=== PATIENT | male | born 1940 | race Caucasian/White ===

== ENCOUNTER 2019-05-29 07:17 | Inpatient (IN) ==
[~2019-05-29 07:17] MED LIST: DEXTROSE 50% 25 GM/50 ML VIAL IV PRN; GLUCAGON 1 MG VIAL IM PRN; ZALEPLON 5 MG CAPSULE PO PRN
[2019-05-29 08:34] LABS: Basophils # 0.1 10*3/uL (0.0-0.2); Basophils % 0.9 % (0.0-0.8); Eosinophils # 0.3 10*3/uL (0.0-0.87); Eosinophils % 3.2 % (0.00-10.9); Hematocrit 40.8 VOL% (42.0-52.0); Hemoglobin 13.9 GM/DL (14.0-18.0); Immature Granulocytes % 0.6 %; Immature Granulocytes Absolute 0.05 #; Lymphocytes % 25.9 % (21.2-54.2); Mean Corpuscular HGB Conc 34.1 GM/DL (32-36); Mean Corpuscular Volume 87.9 FL (87-102); Monocytes % 11.2 % (1.7-12.7); Neutrophils % 58.2 % (38.7-73.9); Platelet Count 231 T/CUMM (130-400); Red Blood Count 4.64 MC/CUMM (3.8-5.5); Red Cell Distribution Width 12.6 % (9.3-17.3); White Blood Count 7.8 T/CUMM (4-12)
[2019-05-29] MEDS: CHLORHEXIDINE 0.12% ORAL RINSE 60 ML BOTTLE SWISH/SPIT SCH ×2 (09:00→21:00)
[2019-05-29 09:01] LABS: Bilirubin,Total 0.6 MG/DL (0.2-1.0); Calcium 9.5 MG/DL (8.5-10.1); Osmolality,Calculated 285.3 MOS/KG (273-304); Total Protein 7.6 G/DL (6.4-8.3)
[2019-05-29] MEDS: ASPIRIN CHEW 81 MG TABLET PO SCH (09:43)
[2019-05-29] MEDS: LISINOPRIL 10 MG TABLET PO SCH (09:43)
[2019-05-29] MEDS: ATORVASTATIN 10 MG TABLET PO SCH (09:43)
[2019-05-29] MEDS: CHLORHEXIDINE 4% SOLN 118 ML BOTTLE TOP SCH ×4 (15:19→21:00)
[2019-05-30] MEDS ORDERED: VANCOMYCIN 1,000 MG VIAL ONE (04:23)
[2019-05-30] MEDS ORDERED: VANCOMYCIN 500 MG VIAL ONE (04:23)
[2019-05-30] MEDS ORDERED: PAPAVERINE 60 MG/2 ML VIAL ONE (04:23)
[2019-05-30] MEDS ORDERED: HEPARIN/NACL 0.9% 2 UNITS/ML 500 ML IV ONE (05:27)
[2019-05-30] MEDS ORDERED: SUFentanil 250 MCG/5 ML AMP ONE (05:28)
[2019-05-30] MEDS ORDERED: MIDAZOLAM 10 MG/2 ML VIAL ONE (05:28)
[2019-05-30] MEDS: SODIUM CHLORIDE 0.9% 1,000 ML IV SCH ×2 (05:46→10:20)
[2019-05-30] MEDS ORDERED: PANTOPRAZOLE 40 MG VIAL IV ONE (06:00)
[2019-05-30] MEDS ORDERED: DIAZEPAM 5 MG TABLET PO ONE (06:00)
[2019-05-30] MEDS ORDERED: CEFUROXIME INJ 1,500 MG in SYRINGE 1 EACH IV ONE (06:00)
[2019-05-30 07:44] LABS: ABG Base Excess 0.2 MMOL/L (-2.5-2.5); ABG HCO3 24.6 MMOL/L (20-26); ABG PH 7.467 (7.35-7.45); ABG TCO2 20.3 MMOL/L (23-27); Glucose Heart Surgery 150 MG/DL (74-106); Hematocrit Heart Surgery 37.3 PERCENT (42-52); Hemoglobin Heart Surgery 12.1 G/DL (14.0-18.0); Ionized Calcium Arterial 1.14 MMOL/L (1.21-1.46); PH Patient Temp Arterial 7.467; Patient Temperature 37 CELCIUS; Potassium Heart/CVR 3.9 MMOL/L (3.5-5.1); Sodium Heart/CVR 139 MMOL/L (135-145)
[2019-05-30 07:57] LABS: Apearance,Urine CLEAR (Clear); Bilirubin,Urine Negative (Negative); Blood, Urine Moderate mg/dL (Negative); Glucose,Urine (UA) 150 mg/dL (Negative); Ketones,Urine Negative (Negative); Mucus,Urine Occasional /LPF (Occasional); Nitrite,Urine Negative (Negative); Protein,Urine Negative; RBC,Urine 42 /HPF (0-4); Urine Color Yellow (Yellow); Urine Specific Gravity 1.017 (1.001-1.035); Urine Urobilinogen < 2.0 EU/DL (0.2-1.0); WBC,Urine <1 /HPF (0-6)
[2019-05-30 08:53] LABS: Hematocrit Heart Surgery 26.9 PERCENT (42-52); Hemoglobin Heart Surgery 8.7 G/DL (14.0-18.0); PCO2 Patient Temp Venous 31.2 MM HG; PH Patient Temp Venous 7.481; PO2 Patient Temp Venous 39.7 MM HG; Potassium Heart/CVR 4.8 MMOL/L (3.5-5.1); VBG Base Excess 0.3 MEQ/L (0-4); VBG HCO3 24.5 MEQ/L (24-28); VBG Oxygen Saturation 85.2 %; VBG PCO2 34.3 MMHG (41-51); VBG PH 7.451; VBG PO2 45.5 MMHG (17-40)
[2019-05-30] MEDS ORDERED: SODIUM BICARBONATE 50 MEQ/50 ML VIAL IV ONE ×2 (08:57→10:25)
[2019-05-30] MEDS ORDERED: NITROPRUSSIDE 50 MG/2 ML VIAL ONE (08:57)
[2019-05-30] MEDS ORDERED: CALCIUM CHLORIDE 1,000 MG/10 ML SYRINGE IV ONE (08:57)
[2019-05-30] MEDS ORDERED: PHENYLEPHRINE DRIP 40 MG/250 ML PREMIX IV ONE (08:57)
[2019-05-30] MEDS ORDERED: POTASSIUM CHLORIDE RIDER 100 ML IV ONE (08:58)
[2019-05-30] MEDS ORDERED: ALBUMIN 5% 12.5 GM/250 ML VIAL IV ONE ×2 (09:19)
[2019-05-30 09:29] LABS: Hematocrit Heart Surgery 29.2 PERCENT (42-52); Hemoglobin Heart Surgery 9.4 G/DL (14.0-18.0); PCO2 Patient Temp Venous 32.1 MM HG; PH Patient Temp Venous 7.466; PO2 Patient Temp Venous 40.6 MM HG; Potassium Heart/CVR 5.2 MMOL/L (3.5-5.1); VBG HCO3 24.2 MEQ/L (24-28); VBG Oxygen Saturation 87.3 %; VBG PCO2 37.2 MMHG (41-51); VBG PH 7.421; VBG PO2 49.9 MMHG (17-40)
[2019-05-30] MEDS: ASPIRIN CHEW 81 MG TABLET PO SCH (10:20)
[2019-05-30] MEDS: CHLORHEXIDINE 0.12% ORAL RINSE 60 ML BOTTLE SWISH/SPIT SCH ×2 (10:20→20:31)
[2019-05-30] MEDS: ATORVASTATIN 10 MG TABLET PO SCH (10:20)
[2019-05-30] MEDS: CHLORHEXIDINE 4% SOLN 118 ML BOTTLE TOP SCH (10:20)
[2019-05-30] MEDS: LISINOPRIL 10 MG TABLET PO SCH (10:21)
[2019-05-30] MEDS ORDERED: DEXTROSE 5% KCL 20 MEQ 20 MEQ/1,000 ML BAG IV ONE (10:24)
[2019-05-30] MEDS ORDERED: MANNITOL 100 GM/500 ML BAG IV ONE (10:24)
[2019-05-30] MEDS ORDERED: LIDOCAINE 2% 5 ML VIAL ONE ×2 (10:24→11:45)
[2019-05-30] MEDS ORDERED: HEPARIN 10,000 UNIT/10 ML VIAL ONE (10:25)
[2019-05-30] MEDS ORDERED: FUROSEMIDE 20 MG/2 ML VIAL ONE (10:25)
[2019-05-30] MEDS ORDERED: ALBUMIN 25% 25 GM/100 ML VIAL IV ONE (10:25)
[2019-05-30] MEDS ORDERED: PROTAMINE SULFATE 250 MG/25 ML VIAL IV ONE (10:25)
[2019-05-30] MEDS ORDERED: MAGNESIUM SULFATE 5 GM/10 ML VIAL IV ONE (10:25)
[2019-05-30] MEDS ORDERED: methylPREDNISolone SOD SUC 1,000 MG/8 ML VIAL ONE (10:25)
[2019-05-30 10:36] LABS: ABG Base Excess -2.2 MMOL/L (-2.5-2.5); ABG HCO3 22.6 MMOL/L (20-26); ABG Oxygen Saturation 99.8 % (95-100); ABG PCO2 35.7 MM HG (35-48); ABG TCO2 19.9 MMOL/L (23-27); Glucose Heart Surgery 226 MG/DL (74-106); Hematocrit Heart Surgery 33.8 PERCENT (42-52); Hemoglobin Heart Surgery 10.9 G/DL (14.0-18.0); Ionized Calcium Arterial 1.27 MMOL/L (1.21-1.46); PCO2 Patient Temp Arterial 35.7 MMHG; Patient Temperature 37 CELCIUS; Potassium Heart/CVR 4.3 MMOL/L (3.5-5.1); Sodium Heart/CVR 135 MMOL/L (135-145)
[2019-05-30] MEDS ORDERED: SEVOFLURANE 1 UNIT/15 MINUTE INH ONE (11:44)
[2019-05-30] MEDS ORDERED: VECURONIUM 10 MG VIAL IV ONE (11:45)
[2019-05-30] MEDS ORDERED: ETOMIDATE 40 MG/20 ML VIAL IV ONE (11:45)
[2019-05-30] MEDS ORDERED: CALCIUM CHLORIDE 1,000 MG/10 ML VIAL IV ONE (11:45)
[2019-05-30] MEDS ORDERED: PHENYLEPHRINE DRIP 20 MG/250 ML PREMIX IV ONE (11:45)
[2019-05-30] MEDS ORDERED: GLYCOPYRROLATE 0.4 MG/2 ML VIAL ONE (11:45)
[2019-05-30] MEDS: SODIUM CHLORIDE 0.45% 1,000 ML IV SCH ×2 (11:45→12:33)
[2019-05-30] MEDS ORDERED: SODIUM CHLORIDE 0.9% 1,000 ML IV ONE (11:46)
[2019-05-30] MEDS ORDERED: PHENYLEPHRINE 1 MG/10 ML SYRINGE IV ONE (11:46)
[2019-05-30] MEDS ORDERED: LACTATED RINGERS 1,000 ML IV ONE (11:46)
[2019-05-30] MEDS ORDERED: AMINOCAPROIC ACID 5,000 MG/20 ML VIAL ONE (11:46)
[2019-05-30] MEDS ORDERED: MAGNESIUM SULF RIDER 4 GM in PREMIX 1 EACH IV PRN (11:49)
[2019-05-30] MEDS ORDERED: INSULIN REGULAR 100 UNIT/ML IV PRN (11:49)
[2019-05-30] MEDS ORDERED: NITROPRUSSIDE 100 MG in DEXTROSE 5% 250 ML IV PRN (11:49)
[2019-05-30] MEDS ORDERED: MAGNESIUM SULF RIDER 2 GM in PREMIX 1 EACH IV PRN (11:49)
[2019-05-30] MEDS ORDERED: CALCIUM CHLORIDE 1,000 MG/10 ML SYRINGE IV PRN (11:49)
[2019-05-30] MEDS ORDERED: ONDANSETRON 4 MG/2 ML VIAL IV PRN (11:49)
[2019-05-30] MEDS ORDERED: VECURONIUM 10 MG VIAL IV PRN ×2 (11:49)
[2019-05-30] MEDS ORDERED: ACETAMINOPHEN 650 MG SUPP RECTAL PRN (11:49)
[2019-05-30] MEDS ORDERED: MORPHINE 10 MG/1 ML VIAL IV PRN (11:49)
[2019-05-30] MEDS ORDERED: PHENYLEPHRINE DRIP 40 MG/250 ML PREMIX IV PRN (11:49)
[2019-05-30] MEDS ORDERED: DEXTROSE 10% 250 ML BAG IV PRN ×2 (11:49)
[2019-05-30] MEDS ORDERED: INSULIN REGULAR 100 UNIT/ML IV ONE (11:49)
[2019-05-30] MEDS ORDERED: LACTATED RINGERS 250 ML IV PRN (11:49)
[2019-05-30] MEDS ORDERED: KETOROLAC 30 MG/1 ML VIAL IV SCH (12:00)
[2019-05-30] MEDS ORDERED: INSULIN REGULAR DRIP 100 ML IV SCH (12:00)
[2019-05-30 12:11] LABS: ABG Base Excess -2.1 MMOL/L (-2.5-2.5); ABG HCO3 22.2 MMOL/L (20-26); ABG Oxygen Saturation 98.5 % (95-100); ABG PCO2 36.2 MM HG (35-48); ABG PH 7.405 (7.35-7.45); ABG PO2 162.5 MM HG (80-95); ABG TCO2 23.3 MMOL/L (23-27); Glucose Heart Surgery 186 MG/DL (74-106); Hemoglobin Heart Surgery 11.2 G/DL (14.0-18.0); Potassium Heart/CVR 3.6 MMOL/L (3.5-5.1)
[2019-05-30] MEDS: ALBUMIN 5% 12.5 GM in PREMIX 1 EACH IV PRN ×3 (12:14→16:25)
[2019-05-30 12:16] LABS: Basophils % 0.2 % (0.0-0.8); Eosinophils # 0.1 10*3/uL (0.0-0.87); Eosinophils % 0.5 % (0.00-10.9); Hematocrit 31.3 VOL% (42.0-52.0); Hemoglobin 10.6 GM/DL (14.0-18.0); Immature Granulocytes % 0.5 %; Immature Granulocytes Absolute 0.05 #; Mean Corpuscular HGB Conc 33.9 GM/DL (32-36); Mean Corpuscular Volume 88.4 FL (87-102); Mean Platelet Volume 10.1 FL (9.6-12.0); Monocytes % 6.3 % (1.7-12.7); Neutrophils % 81.5 % (38.7-73.9); Platelet Count 165 T/CUMM (130-400); Red Blood Count 3.54 MC/CUMM (3.8-5.5); Red Cell Distribution Width 12.7 % (9.3-17.3); White Blood Count 9.1 T/CUMM (4-12)
[2019-05-30 12:25] LABS: INR 1.1; PT Patient Result 11.7 SECS (9.6-12.2); Partial Thromboplastin Time 25.2 SECS (20.8-36.0)
[2019-05-30 12:34] LABS: CKMB % 6.9 %
[2019-05-30 12:37] LABS: Troponin I 3.36 NG/ML (0.00-0.045)
[2019-05-30 12:44] LABS: Albumin 3.4 G/DL (3.4-5.0); Calcium 8.1 MG/DL (8.5-10.1); Osmolality,Calculated 288.3 MOS/KG (273-304); Total Protein 5.8 G/DL (6.4-8.3)
[2019-05-30] MEDS: POTASSIUM CHLORIDE RIDER 20 MEQ in PREMIX 1 EACH IV PRN ×4 (12:45→20:37)
[2019-05-30] MEDS: POTASSIUM CHLORIDE RIDER 10 MEQ in PREMIX 1 EACH IV PRN ×3 (13:15→18:59)
[2019-05-30] MEDS: LACTATED RINGERS 1,000 ML IV PRN ×2 (13:45→14:21)
[2019-05-30 14:11] LABS: ABG Base Excess -1.8 MMOL/L (-2.5-2.5); ABG HCO3 22.7 MMOL/L (20-26); ABG Oxygen Saturation 97.6 % (95-100); ABG PCO2 37.7 MM HG (35-48); ABG PH 7.398 (7.35-7.45); ABG PO2 115.3 MM HG (80-95); ABG TCO2 23.9 MMOL/L (23-27); Glucose Heart Surgery 137 MG/DL (74-106); Potassium Heart/CVR 3.8 MMOL/L (3.5-5.1)
[2019-05-30] MEDS: MORPHINE 4 MG/1 ML VIAL IV PRN ×3 (15:58→18:15)
[2019-05-30] MEDS: MIDAZOLAM 2 MG/2 ML VIAL IV PRN ×2 (16:55→18:28)
[2019-05-30 17:51] LABS: ABG Base Excess -4.1 MMOL/L (-2.5-2.5); ABG Oxygen Saturation 95.9 % (95-100); ABG PCO2 44.2 MM HG (35-48); ABG PH 7.308 (7.35-7.45); ABG PO2 83.1 MM HG (80-95); ABG TCO2 20.3 MMOL/L (23-27); Glucose Heart Surgery 164 MG/DL (74-106); Hematocrit Heart Surgery 31.9 PERCENT (42-52); Hemoglobin Heart Surgery 10.3 G/DL (14.0-18.0); Potassium Heart/CVR 3.7 MMOL/L (3.5-5.1)
[2019-05-30] MEDS: MIDAZOLAM 10 MG/2 ML VIAL IV PRN ×2 (19:19→21:27)
[2019-05-30 20:21] LABS: ABG Base Excess -4.3 MMOL/L (-2.5-2.5); ABG HCO3 20.8 MMOL/L (20-26); ABG Oxygen Saturation 98.5 % (95-100); ABG PCO2 39.3 MM HG (35-48); ABG PH 7.338 (7.35-7.45); ABG TCO2 19.3 MMOL/L (23-27); Glucose Heart Surgery 149 MG/DL (74-106); Hematocrit Heart Surgery 30.7 PERCENT (42-52); Hemoglobin Heart Surgery 9.9 G/DL (14.0-18.0); Potassium Heart/CVR 4.4 MMOL/L (3.5-5.1)
[2019-05-30] MEDS: CEFUROXIME INJ 1,500 MG in SYRINGE 1 EACH IV SCH (20:28)
[2019-05-30 20:45] LABS: CKMB % 6.2 %
[2019-05-30 20:46] LABS: Troponin I 3.19 NG/ML (0.00-0.045)
[2019-05-30] MEDS ORDERED: FUROSEMIDE 40 MG/4 ML VIAL IV ONE (23:48)
[2019-05-31 00:15] LABS: ABG Base Excess -1.1 MMOL/L (-2.5-2.5); ABG HCO3 22.8 MMOL/L (20-26); ABG Oxygen Saturation 94.7 % (95-100); ABG PCO2 34.6 MM HG (35-48); ABG PH 7.436 (7.35-7.45); ABG PO2 73.2 MM HG (80-95); ABG TCO2 23.8 MMOL/L (23-27); Glucose Heart Surgery 123 MG/DL (74-106); Hemoglobin Heart Surgery 10.1 G/DL (14.0-18.0); Potassium Heart/CVR 4.2 MMOL/L (3.5-5.1)
[2019-05-31] MEDS: POTASSIUM CHLORIDE RIDER 20 MEQ in PREMIX 1 EACH IV PRN ×4 (00:25→04:03)
[2019-05-31] MEDS: MIDAZOLAM 10 MG/2 ML VIAL IV PRN (01:11)
[2019-05-31 03:19] LABS: ABG Base Excess -0.7 MMOL/L (-2.5-2.5); ABG HCO3 23.8 MMOL/L (20-26); ABG Oxygen Saturation 95.8 % (95-100); ABG PCO2 34.7 MM HG (35-48); ABG PH 7.431 (7.35-7.45); ABG PO2 72.7 MM HG (80-95); Glucose Heart Surgery 156 MG/DL (74-106); Hematocrit Heart Surgery 30.7 PERCENT (42-52); Hemoglobin Heart Surgery 9.9 G/DL (14.0-18.0); Potassium Heart/CVR 4.4 MMOL/L (3.5-5.1)
[2019-05-31 03:22] LABS: Basophils % 0.1 % (0.0-0.8); Hematocrit 28.8 VOL% (42.0-52.0); Hemoglobin 9.7 GM/DL (14.0-18.0); Immature Granulocytes % 0.5 %; Immature Granulocytes Absolute 0.07 #; Lymphocytes # 0.7 10*3/uL (1.4-4.0); Lymphocytes % 5.4 % (21.2-54.2); Mean Corpuscular HGB Conc 33.7 GM/DL (32-36); Mean Corpuscular Volume 88.3 FL (87-102); Mean Platelet Volume 10.8 FL (9.6-12.0); Monocytes % 7.6 % (1.7-12.7); Neutrophils % 86.4 % (38.7-73.9); Platelet Count 154 T/CUMM (130-400); Red Blood Count 3.26 MC/CUMM (3.8-5.5); Red Cell Distribution Width 13.1 % (9.3-17.3); White Blood Count 13.2 T/CUMM (4-12)
[2019-05-31 03:41] LABS: Albumin 3.8 G/DL (3.4-5.0); Bilirubin,Direct 0.15 MG/DL (0.0-0.20); Bilirubin,Total 0.7 MG/DL (0.2-1.0); CKMB % 5.6 %; Calcium 8.6 MG/DL (8.5-10.1); Osmolality,Calculated 288.1 MOS/KG (273-304)
[2019-05-31 03:46] LABS: Troponin I 3.88 NG/ML (0.00-0.045)
[2019-05-31 04:45] LABS: ABG Base Excess -0.4 MMOL/L (-2.5-2.5); ABG HCO3 22.7 MMOL/L (20-26); ABG Oxygen Saturation 97.4 % (95-100); ABG PCO2 31.9 MM HG (35-48); ABG PO2 100.8 MM HG (80-95); ABG TCO2 23.7 MMOL/L (23-27); Glucose Heart Surgery 157 MG/DL (74-106); Hemoglobin Heart Surgery 10.4 G/DL (14.0-18.0); Potassium Heart/CVR 5.1 MMOL/L (3.5-5.1)
[2019-05-31 06:01] LABS: ABG Base Excess -0.8 MMOL/L (-2.5-2.5); ABG HCO3 23.7 MMOL/L (20-26); ABG Oxygen Saturation 98.4 % (95-100); ABG PCO2 32.5 MM HG (35-48); ABG PO2 97.4 MM HG (80-95); ABG TCO2 20.5 MMOL/L (23-27); Glucose Heart Surgery 156 MG/DL (74-106); Hematocrit Heart Surgery 30.9 PERCENT (42-52); Potassium Heart/CVR 4.6 MMOL/L (3.5-5.1)
[2019-05-31] MEDS: MORPHINE 4 MG/1 ML VIAL IV PRN (07:32)
[2019-05-31 07:48] LABS: ABG Base Excess -0.8 MMOL/L (-2.5-2.5); ABG HCO3 23.7 MMOL/L (20-26); ABG Oxygen Saturation 97.2 % (95-100); ABG PCO2 35.3 MM HG (35-48); ABG PH 7.425 (7.35-7.45); Glucose Heart Surgery 172 MG/DL (74-106); Hematocrit Heart Surgery 30.7 PERCENT (42-52); Hemoglobin Heart Surgery 9.9 G/DL (14.0-18.0); Potassium Heart/CVR 4.4 MMOL/L (3.5-5.1)
[2019-05-31] MEDS: CEFUROXIME INJ 1,500 MG in SYRINGE 1 EACH IV SCH (07:51)
[2019-05-31] MEDS: LISINOPRIL 10 MG TABLET PO SCH (08:42)
[2019-05-31] MEDS: INSULIN REGULAR 100 UNIT/ML SUBCUT SCH ×5 (08:42→21:24)
[2019-05-31] MEDS: metFORMIN 500 MG TABLET PO SCH ×2 (08:42→21:23)
[2019-05-31] MEDS: ASPIRIN EC 81 MG TABLET PO SCH (08:43)
[2019-05-31] MEDS: CHLORHEXIDINE 0.12% ORAL RINSE 60 ML BOTTLE SWISH/SPIT SCH ×3 (08:43→21:25)
[2019-05-31] MEDS: METOPROLOL TARTRATE 25 MG TABLET PO SCH ×2 (08:43→21:23)
[2019-05-31] MEDS: LOPERAMIDE 2 MG CAPSULE PO SCH (08:43)
[2019-05-31] MEDS ORDERED: DEXTROSE 10% 250 ML BAG IV PRN (13:02)
[2019-05-31] MEDS ORDERED: ALUMINUM/MAGNES/SIMETH MAX STR 30 ML UDCUP PO PRN (13:02)
[2019-05-31] MEDS ORDERED: MAGNESIUM SULF RIDER 2 GM in PREMIX 1 EACH IV PRN (13:02)
[2019-05-31] MEDS ORDERED: MORPHINE 4 MG/1 ML VIAL IV PRN (13:02)
[2019-05-31] MEDS ORDERED: DEXTROSE 50% 25 GM/50 ML VIAL IV PRN (13:02)
[2019-05-31] MEDS ORDERED: POTASSIUM CHLORIDE 20 MEQ TABLET PO PRN (13:02)
[2019-05-31] MEDS ORDERED: ZALEPLON 5 MG CAPSULE PO PRN (13:02)
[2019-05-31] MEDS ORDERED: SODIUM CHLOR 0.45% KCL 20 MEQ 20 MEQ/1,000 ML BAG IV SCH (13:02)
[2019-05-31] MEDS ORDERED: ONDANSETRON 4 MG/2 ML VIAL IV PRN (13:02)
[2019-05-31] MEDS ORDERED: GLUCAGON 1 MG VIAL IM PRN ×2 (13:02)
[2019-05-31] MEDS ORDERED: MAGNESIUM HYDROXIDE SUSP 30 ML UDCUP PO PRN (13:02)
[2019-05-31] MEDS ORDERED: ACETAMINOPHEN 325 MG TABLET PO PRN (13:02)
[2019-05-31] MEDS: SODIUM CHLORIDE 0.45% 1,000 ML IV SCH ×2 (13:12)
[2019-05-31] MEDS: FERROUS SULFATE 325 MG TABLET PO SCH (13:35)
[2019-05-31] MEDS: PANTOPRAZOLE 40 MG TABLET PO SCH (13:35)
[2019-05-31] MEDS: DOCUSATE SODIUM 100 MG CAPSULE PO SCH (13:35)
[2019-05-31] MEDS: ATORVASTATIN 10 MG TABLET PO SCH (21:24)
[2019-06-01] MEDS: oxyCODONE/ACETAMINOPHEN 5-325 MG TABLET PO PRN (05:28)
[2019-06-01] MEDS ORDERED: FUROSEMIDE 40 MG/4 ML VIAL IV ONE (06:00)
[2019-06-01 07:13] LABS: Basophils % 0.1 % (0.0-0.8); Hematocrit 32.1 VOL% (42.0-52.0); Hemoglobin 10.3 GM/DL (14.0-18.0); Immature Granulocytes % 0.7 %; Immature Granulocytes Absolute 0.15 #; Lymphocytes # 1.2 10*3/uL (1.4-4.0); Mean Corpuscular HGB Conc 32.1 GM/DL (32-36); Mean Corpuscular Volume 92.2 FL (87-102); Mean Platelet Volume 11.3 FL (9.6-12.0); Monocytes % 11.5 % (1.7-12.7); Neutrophils % 81.7 % (38.7-73.9); Platelet Count 181 T/CUMM (130-400); Red Blood Count 3.48 MC/CUMM (3.8-5.5); Red Cell Distribution Width 13.2 % (9.3-17.3); White Blood Count 20.1 T/CUMM (4-12)
[2019-06-01 07:33] LABS: Hypochromasia 1+; Lymphocytes 4 % (20-55); Ovalocytes Slight; Platelet Estimate Adequate; Segmented Neutrophils 86 % (50-85); Total Cells Counted 100
[2019-06-01 07:49] LABS: Albumin 3.5 G/DL (3.4-5.0); Bilirubin,Direct 0.16 MG/DL (0.0-0.20); Bilirubin,Indirect 0.4 MG/DL (0.0-1.0); Bilirubin,Total 0.6 MG/DL (0.2-1.0); CKMB % 1.5 %; Calcium 8.1 MG/DL (8.5-10.1); Total Protein 6.8 G/DL (6.4-8.3)
[2019-06-01 07:50] LABS: Troponin I 3.14 NG/ML (0.00-0.045)
[2019-06-01] MEDS: metFORMIN 500 MG TABLET PO SCH ×2 (08:54→21:52)
[2019-06-01] MEDS: ASPIRIN EC 81 MG TABLET PO SCH (08:54)
[2019-06-01] MEDS: INSULIN REGULAR 100 UNIT/ML SUBCUT SCH ×4 (08:54→21:50)
[2019-06-01] MEDS: LISINOPRIL 10 MG TABLET PO SCH (08:54)
[2019-06-01] MEDS: FERROUS SULFATE 325 MG TABLET PO SCH (08:55)
[2019-06-01] MEDS: DOCUSATE SODIUM 100 MG CAPSULE PO SCH (08:55)
[2019-06-01] MEDS: LOPERAMIDE 2 MG CAPSULE PO SCH (08:55)
[2019-06-01] MEDS: PANTOPRAZOLE 40 MG TABLET PO SCH (08:55)
[2019-06-01] MEDS: CHLORHEXIDINE 0.12% ORAL RINSE 60 ML BOTTLE SWISH/SPIT SCH ×2 (08:55→21:53)
[2019-06-01] MEDS: METOPROLOL TARTRATE 25 MG TABLET PO SCH ×2 (09:02→21:52)
[2019-06-01] MEDS: ATORVASTATIN 10 MG TABLET PO SCH (21:52)
[2019-06-02] MEDS: oxyCODONE/ACETAMINOPHEN 5-325 MG TABLET PO PRN ×2 (03:55→21:02)
[2019-06-02 06:02] LABS: Basophils % 0.1 % (0.0-0.8); Eosinophils % 0.1 % (0.00-10.9); Hematocrit 29.1 VOL% (42.0-52.0); Hemoglobin 9.4 GM/DL (14.0-18.0); Immature Granulocytes % 0.9 %; Immature Granulocytes Absolute 0.14 #; Lymphocytes # 2.2 10*3/uL (1.4-4.0); Lymphocytes % 14.4 % (21.2-54.2); Mean Corpuscular HGB Conc 32.3 GM/DL (32-36); Mean Corpuscular Volume 92.4 FL (87-102); Mean Platelet Volume 11.1 FL (9.6-12.0); Monocytes % 11.7 % (1.7-12.7); Neutrophils % 72.8 % (38.7-73.9); Platelet Count 157 T/CUMM (130-400); Red Blood Count 3.15 MC/CUMM (3.8-5.5); Red Cell Distribution Width 13.1 % (9.3-17.3); White Blood Count 15.6 T/CUMM (4-12)
[2019-06-02 06:50] LABS: Alanine Aminotransferase 18 U/L (16-61); Albumin 3.1 G/DL (3.4-5.0); Alkaline Phosphatase 60 U/L (45-117); Aspartate Amino Transferase 23 U/L (0-37); Bilirubin,Indirect 0.4 MG/DL (0.0-1.0); Blood Urea Nitrogen 31 MG/DL (7-18); Calcium 8.3 MG/DL (8.5-10.1); Estimated Glom Filtration Rate 71 ML/MIN; Glucose 152 MG/DL (74-106); Osmolality,Calculated 284.7 MOS/KG (273-304)
[2019-06-02] MEDS: INSULIN REGULAR 100 UNIT/ML SUBCUT SCH ×4 (08:46→21:01)
[2019-06-02] MEDS: LISINOPRIL 10 MG TABLET PO SCH (09:33)
[2019-06-02] MEDS: DOCUSATE SODIUM 100 MG CAPSULE PO SCH (09:33)
[2019-06-02] MEDS: CHLORHEXIDINE 0.12% ORAL RINSE 60 ML BOTTLE SWISH/SPIT SCH ×2 (09:34→21:02)
[2019-06-02] MEDS: metFORMIN 500 MG TABLET PO SCH ×2 (09:34→21:01)
[2019-06-02] MEDS: ASPIRIN EC 81 MG TABLET PO SCH (09:34)
[2019-06-02] MEDS: PANTOPRAZOLE 40 MG TABLET PO SCH (09:34)
[2019-06-02] MEDS: FERROUS SULFATE 325 MG TABLET PO SCH (09:34)
[2019-06-02] MEDS: LOPERAMIDE 2 MG CAPSULE PO SCH (09:34)
[2019-06-02] MEDS: METOPROLOL TARTRATE 25 MG TABLET PO SCH ×2 (09:34→21:01)
[2019-06-02] MEDS: ATORVASTATIN 10 MG TABLET PO SCH (21:01)
[2019-06-03] MEDS: FERROUS SULFATE 325 MG TABLET PO SCH (08:59)
[2019-06-03] MEDS: INSULIN REGULAR 100 UNIT/ML SUBCUT SCH ×4 (08:59→22:11)
[2019-06-03] MEDS: DOCUSATE SODIUM 100 MG CAPSULE PO SCH (08:59)
[2019-06-03] MEDS: ASPIRIN EC 81 MG TABLET PO SCH (08:59)
[2019-06-03] MEDS: LOPERAMIDE 2 MG CAPSULE PO SCH (09:00)
[2019-06-03] MEDS: CHLORHEXIDINE 0.12% ORAL RINSE 60 ML BOTTLE SWISH/SPIT SCH ×2 (09:00→22:18)
[2019-06-03] MEDS: LISINOPRIL 10 MG TABLET PO SCH (09:00)
[2019-06-03] MEDS: metFORMIN 500 MG TABLET PO SCH ×2 (09:00→22:10)
[2019-06-03] MEDS: PANTOPRAZOLE 40 MG TABLET PO SCH (09:00)
[2019-06-03] MEDS: METOPROLOL TARTRATE 25 MG TABLET PO SCH ×2 (09:00→22:11)
[2019-06-03] MEDS: oxyCODONE/ACETAMINOPHEN 5-325 MG TABLET PO PRN (19:55)
[2019-06-03] MEDS: ATORVASTATIN 10 MG TABLET PO SCH (22:11)
[2019-06-04 05:01] LABS: Basophils % 0.3 % (0.0-0.8); Eosinophils # 0.3 10*3/uL (0.0-0.87); Eosinophils % 2.6 % (0.00-10.9); Hematocrit 29.7 VOL% (42.0-52.0); Hemoglobin 9.9 GM/DL (14.0-18.0); Immature Granulocytes % 1.2 %; Immature Granulocytes Absolute 0.13 #; Lymphocytes # 2.6 10*3/uL (1.4-4.0); Lymphocytes % 23.3 % (21.2-54.2); Mean Corpuscular HGB Conc 33.3 GM/DL (32-36); Mean Corpuscular Volume 88.7 FL (87-102); Mean Platelet Volume 10.7 FL (9.6-12.0); Monocytes % 11.4 % (1.7-12.7); Neutrophils % 61.2 % (38.7-73.9); Platelet Count 219 T/CUMM (130-400); Red Blood Count 3.35 MC/CUMM (3.8-5.5); Red Cell Distribution Width 12.3 % (9.3-17.3); White Blood Count 11.2 T/CUMM (4-12)
[2019-06-04 05:31] LABS: Alanine Aminotransferase 28 U/L (16-61); Albumin 2.9 G/DL (3.4-5.0); Alkaline Phosphatase 89 U/L (45-117); Aspartate Amino Transferase 19 U/L (0-37); Bilirubin,Indirect 0.5 MG/DL (0.0-1.0); Blood Urea Nitrogen 24 MG/DL (7-18); Estimated Glom Filtration Rate 71 ML/MIN; Glucose 133 MG/DL (74-106); Osmolality,Calculated 286.3 MOS/KG (273-304); Total Protein 6.2 G/DL (6.4-8.3)
[2019-06-04] MEDS: MAGNESIUM SULF RIDER 4 GM in PREMIX 1 EACH IV PRN (06:39)
[2019-06-04] MEDS: ASPIRIN EC 81 MG TABLET PO SCH (08:51)
[2019-06-04] MEDS: METOPROLOL TARTRATE 25 MG TABLET PO SCH ×2 (08:51→21:22)
[2019-06-04] MEDS: metFORMIN 500 MG TABLET PO SCH ×2 (08:52→21:22)
[2019-06-04] MEDS: PANTOPRAZOLE 40 MG TABLET PO SCH (08:53)
[2019-06-04] MEDS: LISINOPRIL 10 MG TABLET PO SCH (08:53)
[2019-06-04] MEDS: INSULIN REGULAR 100 UNIT/ML SUBCUT SCH ×4 (08:53→21:21)
[2019-06-04] MEDS: FERROUS SULFATE 325 MG TABLET PO SCH (08:53)
[2019-06-04] MEDS: LOPERAMIDE 2 MG CAPSULE PO SCH (08:53)
[2019-06-04] MEDS: CHLORHEXIDINE 0.12% ORAL RINSE 60 ML BOTTLE SWISH/SPIT SCH ×2 (08:53→21:26)
[2019-06-04] MEDS: DOCUSATE SODIUM 100 MG CAPSULE PO SCH (08:53)
[2019-06-04] MEDS: ATORVASTATIN 10 MG TABLET PO SCH (21:22)
[2019-06-05 05:01] LABS: Basophils # 0.1 10*3/uL (0.0-0.2); Basophils % 0.4 % (0.0-0.8); Eosinophils # 0.3 10*3/uL (0.0-0.87); Eosinophils % 2.8 % (0.00-10.9); Hematocrit 29.3 VOL% (42.0-52.0); Hemoglobin 9.8 GM/DL (14.0-18.0); Immature Granulocytes % 1.6 %; Lymphocytes # 2.3 10*3/uL (1.4-4.0); Lymphocytes % 18.9 % (21.2-54.2); Mean Corpuscular HGB Conc 33.4 GM/DL (32-36); Mean Corpuscular Volume 89.1 FL (87-102); Monocytes % 10.9 % (1.7-12.7); Neutrophils % 65.4 % (38.7-73.9); Platelet Count 230 T/CUMM (130-400); Red Blood Count 3.29 MC/CUMM (3.8-5.5); Red Cell Distribution Width 12.5 % (9.3-17.3); White Blood Count 12.3 T/CUMM (4-12)
[2019-06-05 05:22] LABS: Alanine Aminotransferase 29 U/L (16-61); Albumin 2.8 G/DL (3.4-5.0); Alkaline Phosphatase 114 U/L (45-117); Aspartate Amino Transferase 17 U/L (0-37); Bilirubin,Direct < 0.100 MG/DL (0.0-0.20); Bilirubin,Indirect 0.3 MG/DL (0.0-1.0); Blood Urea Nitrogen 23 MG/DL (7-18); Calcium 8.8 MG/DL (8.5-10.1); Estimated Glom Filtration Rate 89 ML/MIN; Glucose 138 MG/DL (74-106); Osmolality,Calculated 282.5 MOS/KG (273-304)
[2019-06-05 05:27] LABS: Troponin I 0.775 NG/ML (0.00-0.045)
[2019-06-05] MEDS: MAGNESIUM SULF RIDER 4 GM in PREMIX 1 EACH IV PRN (06:01)
[2019-06-05] MEDS: INSULIN REGULAR 100 UNIT/ML SUBCUT SCH ×4 (07:43→21:22)
[2019-06-05] MEDS: METOPROLOL TARTRATE 25 MG TABLET PO SCH ×2 (08:51→21:21)
[2019-06-05] MEDS: PANTOPRAZOLE 40 MG TABLET PO SCH (08:51)
[2019-06-05] MEDS: LISINOPRIL 10 MG TABLET PO SCH (08:51)
[2019-06-05] MEDS: metFORMIN 500 MG TABLET PO SCH ×2 (08:51→21:21)
[2019-06-05] MEDS: ASPIRIN EC 81 MG TABLET PO SCH (08:51)
[2019-06-05] MEDS: DOCUSATE SODIUM 100 MG CAPSULE PO SCH (08:51)
[2019-06-05] MEDS: CHLORHEXIDINE 0.12% ORAL RINSE 60 ML BOTTLE SWISH/SPIT SCH ×2 (08:51→21:20)
[2019-06-05] MEDS: FERROUS SULFATE 325 MG TABLET PO SCH (08:51)
[2019-06-05] MEDS: LOPERAMIDE 2 MG CAPSULE PO SCH (08:52)
[2019-06-05] MEDS: oxyCODONE/ACETAMINOPHEN 5-325 MG TABLET PO PRN (13:32)
[2019-06-05] MEDS: ATORVASTATIN 10 MG TABLET PO SCH (21:21)
[2019-06-06] MEDS: oxyCODONE/ACETAMINOPHEN 5-325 MG TABLET PO PRN ×2 (01:03→21:37)
[2019-06-06] MEDS: INSULIN REGULAR 100 UNIT/ML SUBCUT SCH ×4 (07:36→22:55)
[2019-06-06] MEDS: metFORMIN 500 MG TABLET PO SCH ×2 (08:40→21:36)
[2019-06-06] MEDS: PANTOPRAZOLE 40 MG TABLET PO SCH (08:41)
[2019-06-06] MEDS: LISINOPRIL 10 MG TABLET PO SCH (08:41)
[2019-06-06] MEDS: FERROUS SULFATE 325 MG TABLET PO SCH (08:41)
[2019-06-06] MEDS: METOPROLOL TARTRATE 25 MG TABLET PO SCH ×2 (08:41→21:38)
[2019-06-06] MEDS: ASPIRIN EC 81 MG TABLET PO SCH (08:41)
[2019-06-06] MEDS: CHLORHEXIDINE 0.12% ORAL RINSE 60 ML BOTTLE SWISH/SPIT SCH ×2 (08:41→21:40)
[2019-06-06] MEDS: LOPERAMIDE 2 MG CAPSULE PO SCH (08:41)
[2019-06-06] MEDS: DOCUSATE SODIUM 100 MG CAPSULE PO SCH (08:41)
[2019-06-06] MEDS: ATORVASTATIN 10 MG TABLET PO SCH (21:38)
[2019-06-07 08:04] VITALS: BP 132/68
[2019-06-07] MEDS: PANTOPRAZOLE 40 MG TABLET PO SCH (08:17)
[2019-06-07] MEDS: metFORMIN 500 MG TABLET PO SCH (08:17)
[2019-06-07] MEDS: LISINOPRIL 10 MG TABLET PO SCH (08:17)
[2019-06-07] MEDS: FERROUS SULFATE 325 MG TABLET PO SCH (08:17)
[2019-06-07] MEDS: METOPROLOL TARTRATE 25 MG TABLET PO SCH (08:17)
[2019-06-07] MEDS: ASPIRIN EC 81 MG TABLET PO SCH (08:17)
[2019-06-07] MEDS: DOCUSATE SODIUM 100 MG CAPSULE PO SCH (08:17)
[2019-06-07] MEDS: INSULIN REGULAR 100 UNIT/ML SUBCUT SCH (08:18)
[2019-06-07] MEDS: LOPERAMIDE 2 MG CAPSULE PO SCH (08:18)
[2019-06-07] MEDS: CHLORHEXIDINE 0.12% ORAL RINSE 60 ML BOTTLE SWISH/SPIT SCH (08:18)
== END 2019-06-07 10:30 | disposition home health service (06) | DRG 236 ==
LOC: N.4E 07:45 → SUPCPDRO 07:45 → N.CVR 05-30 11:26 → N.TELES 05-31 13:33